=== PATIENT | female | born 1940 | race Caucasian/White ===

== ENCOUNTER 2022-02-13 13:48 | Outpatient (RCR) | payer MEDICARE ==
[~2022-02-13 13:48] MED LIST: CELEBREX200 MG PO; CIPRO500 MG PO; CLONAZEPAM1 MG PO; CYMBALTA60 MG PO; DETROL LA4 MG PO; EVISTA60 MG PO; LISINOPRIL20 MG PO; LOMOTIL TABLET1 EACH PO; PRAVASTATIN SOD40 MG PO; PRISTIQ ER50 MG PO; VICTOZA 2-0.6 MG/0.1
== END 2022-02-16 ==
LOC: PT 13:48
PROVIDERS: ATTEND Physician Assistant
DX: S72.452D Displaced supracondylar fracture without intracondylar extension of lower end of left femur, subsequent encounter for closed fracture with routine healing (principal); M25.562 Pain in left knee; M25.662 Stiffness of left knee, not elsewhere classified; R26.2 Difficulty in walking, not elsewhere classified; R29.3 Abnormal posture; Z91.81 History of falling; R26.89 Other abnormalities of gait and mobility

== ENCOUNTER → 2022-03-18 | Outpatient (RCR) | payer MEDICARE | LOC: PT 02-17 08:28 | PROVIDERS: ATTEND Physician Assistant | DX: M54.50 Low back pain, unspecified (principal); S72.452D Displaced supracondylar fracture without intracondylar extension of lower end of left femur, subsequent encounter for closed fracture with routine healing; M51.36 Other intervertebral disc degeneration, lumbar region; M53.86 Other specified dorsopathies, lumbar region; M25.562 Pain in left knee; M25.662 Stiffness of left knee, not elsewhere classified; R26.2 Difficulty in walking, not elsewhere classified; M62.81 Muscle weakness (generalized) ==